=== PATIENT | female | born 1975 | race Hispanic/Latino ===

== ENCOUNTER 2017-12-17 21:49 | Emergency (ER) | payer SELFPAY ==
[~2017-12-17] VITALS: Ht 160 cm; Wt 66.7 kg
[2017-12-17 22:46] LABS: BASOPHIL (%) 0.2 % (0-1); EOSINOPHIL (%) 1.6 % (0-5); EOSINOPHIL COUNT 0.1 K/uL (0-0.3); HEMATOCRIT 41.6 % (36.0-46.0); HEMOGLOBIN 14.4 G/DL (11.9-15.5); IMMATURE GRANULOCYTE (%) 0.3 % (0.0-0.7); LYMPHOCYTE (%) 36.9 % (15-42); LYMPHOCYTE COUNT 3.2 K/uL (1.0-2.8); MCH 31.4 PG (29.0-34.0); MCHC 34.6 G/DL (30.0-36.0); MCV 90.6 FL (83-99); MONOCYTE (%) 4.1 % (3-12); MONOCYTE COUNT 0.4 K/uL (0-0.8); NEUTROPHIL (%) 56.9 % (45-76); PLATELET COUNT 172 K/uL (156-360); RBC DIS.WIDTH-CV 12.9 % (11.8-14.6); RBC DIS.WIDTH-SD 42.4 % (39-53); RED BLOOD COUNT 4.59 M/uL (3.80-5.20); WHITE BLOOD COUNT 8.8 K/uL (4.1-10.2)
[2017-12-17 22:57] LABS: ALBUMIN 4.1 g/dL (3.2-4.8); CHLORIDE 107 mEq/L (99-109); POTASSIUM 3.2 mEq/L (3.7-5.4); SODIUM 139 mEq/L (136-147)
[2017-12-17 23:00] LABS: GLUCOSE 91 mg/dL (70-99); TOTAL PROTEIN 6.7 g/dL (6.4-8.3)
[2017-12-17 23:01] LABS: TOTAL BILIRUBIN 0.6 mg/dL (0.0-1.0)
[2017-12-17 23:03] LABS: ALKALINE PHOSPHATASE 61 IU/L (3-129); CREATININE 0.8 mg/dL (0.6-1.3); GFR ESTIMATE (CALCULATED) > 59 mL/min/
[2017-12-17 23:04] LABS: UREA NITROGEN (BUN) 16 mg/dL (9-23)
[2017-12-17 23:05] LABS: AST (GOT) 19 IU/L (2-34)
[2017-12-17 23:06] LABS: ALT (GPT) 15 IU/L (3-49)
[2017-12-17 23:12] LABS: QUANTITATIVE HCG < 4.0 MIU/ML
[2017-12-18 00:40] LABS: ERTH.SED.RATE 10 MM/HR (0-20)
[2017-12-18] MEDS ORDERED: PEPCID20 MG PO (01:22)
[2017-12-18] MEDS ORDERED: BENADRYL50 MG PO (01:22)
[2017-12-18] MEDS ORDERED: PREDNISONE20 MG PO (01:22)
[2017-12-18 02:07] VITALS: BP 104/76
[2017-12-18 03:04] LABS: C-REACTIVE PROTEIN < 1.0 MG/L (0-10)
== END 2017-12-18 02:11 | disposition home or self-care (01) ==
LOC: EDBD 21:49 → EME 21:49
PROVIDERS: Emergency Medicine
DX: T78.40XA Allergy, unspecified, initial encounter (principal); M25.532 Pain in left wrist; M25.531 Pain in right wrist; Z87.891 Personal history of nicotine dependence
CPT/HCPCS: 73110; 80053; 84702; 85025; 85651; 86140; 99281; 99284; J1200; J2930; J7030; S0028